=== PATIENT | male | born 2000 | race Caucasian/White ===

== ENCOUNTER 2022-01-13 16:36 | Emergency (ER) | payer OTHER, BC ==
[~2022-01-13 16:36] MED LIST: Iopamidol 300 61% 100 ML VIAL FS ONE
[2022-01-13 16:56] LABS: #Basophils 0.1 10x3/uL (0.0-0.2); #Eosinphils 0.1 10x3/uL (0.0-0.5); #Monocytes 0.5 10x3/uL (0.0-1.1); #Neutrophils 3.5 10x3/uL (1.5-8.4); %Basophils 1.2 % (0.0-2.0); %Eosinophils 1.5 % (0.0-6.0); %Lymphocytes 30.2 % (18.0-47.0); %Monocytes 8.2 % (0.0-10.0); %Neutrophils 57.7 % (40.0-75.0); Hemoglobin 15.5 g/dL (13.5-17.5); Mean Corpuscular HGB CONC 34.2 g/dL (32.0-36.0); Mean Corpuscular Hemoglobin 28.6 pg (27.0-33.0); Mean Corpuscular Volume 83.6 fl (81.2-95.1); Mean Platelet Volume 10.3 fl (7.4-10.4); Platelet Count 209 10x3/uL (150-450); RBC Distribution Width 13.2 % (11.5-14.5); Red Blood Cell (RBC) Count 5.42 10x6/uL (4.32-5.72)
[2022-01-13] MEDS ORDERED: Fentanyl 100 MCG/2 ML VIAL ONE ×2 (17:00→18:01)
[2022-01-13 17:08] LABS: ALT (SGPT) 29 U/L (8-55); AST (SGOT) 37 U/L (10-45); Albumin 4.9 g/dL (3.5-5.0); Alkaline Phosphatase 58 U/L (50-130); Anion Gap 16 mmol/L (10-20); BUN (Urea Nitrogen) 12 mg/dL (8.4-21.0); Bilirubin, Total 0.2 mg/dL (0.2-1.2); Calc. Creatinine Clearance 0 mL/min (70-130); Calcium 9.5 mg/dL (7.8-10.44); Carbon Dioxide 23 mmol/L (22-29); Chloride 105 mmol/L (98-107); Globulin 2.8 g/dL (2.4-3.5); Glucose 94 mg/dL (70-105); Potassium 3.8 mmol/L (3.5-5.1); Protein, Total 7.7 g/dL (6.0-8.3); Sodium 140 mmol/L (136-145)
[2022-01-13 17:08] LABS: Acetaminophen Less than 10.0 mcg/mL (10.0-30.0); Alcohol 169 mg/dL (Less than 10); Salicylate Less than 8.0 mg/dL (15.0-30.0)
[2022-01-13] MEDS ORDERED: Lidocaine 1% w/Epinephrine 1:100K 20 ML VIAL ONE (18:02)
[2022-01-13] MEDS ORDERED: Boostrix 0.5 ML (Tdap) VIAL ONE (18:03)
[2022-01-13] MEDS ORDERED: Ondansetron PF 4 MG/2 ML Vial ONE (19:02)
[2022-01-13] MEDS ORDERED: Morphine 4 MG/ML VIAL ONE (19:02)
== END 2022-01-13 19:19 | disposition short-term general hospital (02) ==
LOC: CSHERS 16:36
DX: S06.5X9A Traumatic subdural hemorrhage with loss of consciousness of unspecified duration, initial encounter (principal); S06.6X9A Traumatic subarachnoid hemorrhage with loss of consciousness of unspecified duration, initial encounter; S01.01XA Laceration without foreign body of scalp, initial encounter; F17.290 Nicotine dependence, other tobacco product, uncomplicated; F10.129 Alcohol abuse with intoxication, unspecified; V48.0XXA Car driver injured in noncollision transport accident in nontraffic accident, initial encounter; W22.11XA Striking against or struck by driver side automobile airbag, initial encounter; Y90.6 Blood alcohol level of 120-199 mg/100 ml; Z23 Encounter for immunization
CPT/HCPCS: 12002; 70450; 71260; 72125; 74177; 80053; 80307; 84484; 85025; 90471; 90715; 96374; 96375; 96376; G0390; J2270; J2405; J3010; Q9967